=== PATIENT | male | born 2000 | race Caucasian/White ===

== ENCOUNTER 2024-11-07 10:36 | Emergency (ER) | payer BC, SELFPAY ==
[2024-11-07 10:39] VITALS: BP 145/84; PULSE 74; RESP 18; TEMP 36.4; O2SAT 97
--- NOTE | 2024-11-07 11:23 | ED.GENADUL_ITS ---
Discharge Plan Disposition Patient Disposition: Home Condition: Stable Discharge Details Clinical Impression: Laceration of right little finger Primary Care Provider: None,None ED Provider: Ross Lawler Home Meds and New Rx's Prescriptions: No Action No Known Home Meds Discharge Instructions Instructions: Wound Care ED Additional Instructions: You were seen in the emergency department for your laceration to right pinky finger, it is very small and not actively bleeding, is repaired by Steri-Strip and we updated your tetanus, please take Tylenol and ibuprofen for pain, keep the area clean and dry. Washing your hands is okay just try not to submerge them for prolonged periods of time. Please return to the emergency department for any increasing signs of infection like increasing redness, swelling, fever, red streaking up the arm and drainage of pus from the wound. Discharge Data Discharge Date/Time-TO BE ENTERED AT DEPARTURE: 11/07/24 11:46 HPI General Date/Time Provider Initiated Documentation: 11/07/24 10:53 . HPI Narrative: 23 year-old male presents to ED today by POV/ambulating with a chief complaint of R pinky finger laceration with onset just prior to arrival at work, unsure of last Tdap. Quality described as stinging, no radiation to active bleeding, numbness, ROM deficit, grossly contaminated wound. Severity is described as mild. Palliating factors include simple bandage with relief of bleeding. Provoking factors include nothing specific. Patient not anticoagulated. Related Data Home Medications ?Medication ?Instructions ?Recorded ?Confirmed Unknown [No Known Home Meds] 05/09/24 0 05/09/24 Allergies Allergy/AdvReac Type Severity Reaction Status Date / Time No Known Allergies Allergy Unverified 05/09/24 10:51 General Stated Complaint: Laceration ANGEL: 4 Review of Systems All systems reviewed & are unremarkable except as noted in HPI and below Exam Narrative Exam Narrative: GENERAL APPEARANCE: Well-nourished, non-toxic, awake and alert, atraumatic, no acute distress. SKIN: Warm, pink, dry, 0.2 cm laceration on the ulnar aspect of the right pinky finger, no active bleeding, clean wound, not amenable to suture repair, neurovascular intact distal HEAD: Normocephalic, atraumatic, normal hair distribution for gender/age. EYES: Normal conjunctiva, no exudates on lids/lashes. ENT: Nares patent, no circumoral cyanosis, no facial swelling NECK: Supple, trachea midline, painless cervical ROM. LUNGS/CHEST: Non-labored respirations, normal A/P diameter, symmetrical expansion, no chest wall deformity HEART (CV/PV): No peripheral edema, no JVD. ABDOMEN: Soft, non-distended, no guarding. MSK: Normal ROM, no swelling/deformity to bilateral UEs or LEs, moving all extremities without weakness, no cyanosis, spine midline without tenderness, normal curvature. NEURO: Mental Status AAOx4 - alert to person, place, time, events No facial droop, no forehead involvement. Motor: No focal weakness - strength 5/5 in bilateral UEs and LEs, proximal and distal, symmetric. Sensory: sensation intact to light touch globally. Gait normal: patient ambulated without ataxia into ED room. PSYCH: euthymic, cooperative, pleasant, appropriate speech Course Vital Signs Vital signs: Vital Signs Temperature 36.4 C 11/07/24 10:39 Pulse 74 11/07/24 10:39 Respiratory Rate 18 11/07/24 10:39 Blood Pressure 145/84 H 11/07/24 10:39 Pulse Oximetry 97 11/07/24 10:39 Temperature 36.4 C 11/07/24 10:39 Temperature Source Oral 11/07/24 10:39 Pulse 74 11/07/24 10:39 Respiratory Rate 18 11/07/24 10:39 Blood Pressure 145/84 H 11/07/24 10:39 Pulse Oximetry 97 11/07/24 10:39 Oxygen Delivery Method Room Air 11/07/24 10:39 Oxygen Flow Rate 0 11/07/24 10:39 Pain Level 2 11/07/24 10:39 Medical Decision Making This dictation utilizes [id number] dictation software and may contain unedited grammatical errors. 23 year-old male presents to ED today by POV/ambulating with a chief complaint of R pinky finger laceration with onset just prior to arrival at work, unsure of last Tdap. Quality described as stinging, no radiation to active bleeding, numbness, ROM deficit, grossly contaminated wound. Severity is described as mild. Palliating factors include simple bandage with relief of bleeding. Provoking factors include nothing specific. Patients' medical history: Negative, otherwise healthy. Family and social history: Noncontributory. Pertinent exam findings / vital signs include 0.2 cm laceration on the ulnar aspect of the right pinky finger, no active bleeding, clean wound, not amenable to suture repair, neurovascular intact distal. Differential / pathologies of concern include laceration. Diagnostic studies of: - None. Interventions of: - Updated tetanus, bandaged by RN after thorough cleaning. ED Course/Assessment/Plan: 23-year-old male has a minor laceration to his right pinky finger, not amenable to suture repair, very stable, bandaged by RN after thorough cleaning, updated Tdap, strict return criteria for any increasing signs of infection. Findings not consistent with foreign body, tendon laceration, contaminated wound. Disposition of laceration of right little finger. Patient verbalized understanding of the plan and return to ED criteria and engaged in shared decision making. Medical Records Medical records reviewed: Yes I reviewed the patient's medical records. PFSH All Active Problems (Updated 11/07/24 @ 11:30 by ISSAC Osborne) Laceration of right little finger (Acute) Medical History ADHD (attention deficit hyperactivity disorder) NO LONGER ON MEDS Family History Mother Attention and concentration deficit self-percieved Father Attention and concentration deficit unable to complete HS, undiagnosed, untreated Social History Smoking/Tobacco Use Status: Never Smoking risk assessment performed?: Yes Alcohol Intake: current Alcohol Intake frequency: 0-2 drinks per day Drug use: Never Substance use type: does not use Housing: apartment Do you feel safe at home: Yes Do you feel safe in your relationship?: Yes
[2024-11-07] MEDS: Diph,Pertuss(Acell),Tet Vac/Pf 0.5 ML SYR IM (11:46)
== END 2024-11-07 11:46 | disposition home or self-care (01) ==
PROVIDERS: Emergency Provider Physician Assistant
DX: S61.216A Laceration without foreign body of right little finger without damage to nail, initial encounter (principal); X58.XXXA Exposure to other specified factors, initial encounter; Z23 Encounter for immunization
CPT/HCPCS: 99283 ×2; 90471; 90715